=== PATIENT | male | born 1975 | race African-American/Black ===

== ENCOUNTER 2017-09-28 20:26 | Emergency (ER) | payer OTHER ==
[~2017-09-28 20:26] MED LIST: Naloxone 2 MG/2 ML Syringe ONE
[2017-09-28] MEDS ORDERED: Naloxone 2 MG/2 ML Syringe ONE ×2 (20:28→22:19)
[2017-09-28] MEDS ORDERED: Sodium Chloride 0.9% 10 ML Syringe FLUSH PRN (20:39)
[2017-09-28] MEDS ORDERED: Sodium Chloride 0.9% 1,000 ML IV ONE ×2 (20:40→22:52)
--- NOTE | 2017-09-28 20:48 | EDM.PDOC ---
ED HPI GENERAL MEDICAL PROBLEM - General Chief Complaint: Drug or Alcohol Abuse Stated Complaint: [facility] Time Seen by Provider: 09/28/17 20:30 Source of Information: Reports: Patient History Limitations: Reports: Other (Mildly confused and sedated.) - History of Present Illness INITIAL COMMENTS - FREE TEXT/NARRATIVE: Patient is a 42-year-old male who went apneic sitting in a chair by his . states they're were watching TV when she saw the patient bobbing his head. She asked him if he was all right to which he replied yes. Over the next few minutes patient became unresponsive and apneic. 911 was called and the patient was moved to the floor with CPR started. Upon arrival of EMS the patient was apneic with CPR in progress. They administered in total 4 mg of Narcan with patient awaking spontaneously. He had been smoking shyanne this evening. Pot was from a new seller. There is concern the marijuana was laced with fentanyl. Patient denies taking heroin, narcotic pain medications, or any other additional controlled substances. Currently denies any chest pain, sob, nausea/ vomiting, headache, vision changes, abdominal pain, or any additional complaints. - Related Data Allergies Allergy/AdvReac Type Severity Reaction Status Date / Time No Known Allergies Allergy Verified 09/28/17 20:36 Home Meds: Home Meds Cetirizine HCl [Zyrtec] 10 mg PO BEDTIME 09/28/17 [History] Lisinopril 20 mg PO DAILY 09/28/17 [History] Methocarbamol [Robaxin] 500 mg PO BID 09/28/17 [History] buPROPion [Wellbutrin] 100 mg PO DAILY 09/28/17 [History] hydrOXYzine HCl [Atarax] 5 mg PO BID 09/28/17 [History] ED ROS GENERAL - Review of Systems Review Of Systems: ROS reveals no pertinent complaints other than HPI. - Physical Exam Exam: See Below Exam Limited By: Intoxication General Appearance: Alert, No Apparent Distress, Other (Sedated) Eye Exam: Bilateral Eye: EOMI, Other (Pupils are pinpoint unable to determine reactivity.) Ears: Hearing Grossly Normal Nose: Normal Inspection Throat/Mouth: Normal Inspection, Normal Oropharynx, Normal Voice Head Exam: Atraumatic, Normocephalic Neck: Normal Inspection, Supple, Non-Tender, Full Range of Motion Respiratory/Chest: No Respiratory Distress, Lungs Clear, Normal Breath Sounds, No Accessory Muscle Use, Chest Non-Tender Cardiovascular: Normal Peripheral Pulses, Regular Rate, Rhythm, No Murmur GI/Abdominal: Normal Bowel Sounds, Soft, Non-Tender, No Organomegaly Neuro Exam (Abbreviated): Alert, CN II-XII Intact, No Motor/Sensory Deficits, Confused, Other (Patient was all extremities. No facial droop. No slurred speech.) Back Exam: Normal Inspection Extremities: Normal Inspection Psychiatric: Other (Sedated) Skin Exam: Warm, Dry, Intact, Normal Color Course - Vital Signs Last Recorded V/S: Last Vital Signs Temp 97.2 F 09/28/17 20:42 Pulse 100 09/28/17 20:42 Resp 18 09/28/17 20:42 BP 159/103 H 09/28/17 20:42 Pulse Ox 95 09/28/17 20:42 - Orders/Labs/Meds Labs: Laboratory Tests 09/28/17 09/28/17 09/28/17 Range/Units 21:00 21:00 22:29 WBC 5.46 (4.23-9.07) K/mm3 RBC 5.25 (4.63-6.08) M/mm3 Hgb 14.9 (13.7-17.5) gm/L Hct 43.9 (40.1-51.0) % MCV 83.6 (79.0-92.2) fl MCH 28.4 (25.7-32.2) pg MCHC 33.9 (32.2-35.5) g/dl RDW Std Deviation 48.2 H (35.1-43.9) fL Plt Count 248 (163-337) K/mm3 MPV 10.3 (9.4-12.3) fl Neut % (Auto) 48.9 (34.0-67.9) % Lymph % (Auto) 37.5 (21.8-53.1) % [place] % (Auto) 10.1 (5.3-12.2) % Eos % (Auto) 2.7 (0.8-7.0) Baso % (Auto) 0.4 (0.1-1.2) % Neut # (Auto) 2.67 (1.78-5.38) K/mm3 Lymph # (Auto) 2.05 (1.32-3.57) K/mm3 [place] # (Auto) 0.55 (0.30-0.82) K/mm3 Eos # (Auto) 0.15 (0.04-0.54) K/mm3 Baso # (Auto) 0.02 (0.01-0.08) K/mm3 Sodium 143 (136-145) mEq/L Potassium 3.8 (3.5-5.1) mEq/L Chloride 106 (98-107) mEq/L Carbon Dioxide 27 (21-32) mEq/L Anion Gap 13.8 (5-15) BUN 17 (7-18) mg/dL Creatinine 1.2 (0.7-1.3) mg/dL Est Cr Clr Drug Dosing 75.74 mL/min Estimated GFR (MDRD) > 60 (>60) mL/min BUN/Creatinine Ratio 14.2 (14-18) Glucose 109 H (74-106) mg/dL Calcium 9.3 (8.5-10.1) mg/dL Total Bilirubin 0.2 (0.2-1.0) mg/dL AST 43 H (15-37) U/L ALT 53 (16-63) U/L Alkaline Phosphatase 85 (46-116) U/L Troponin I 0.051 (0.00-0.056) ng/mL Total Protein 7.4 (6.4-8.2) g/dl Albumin 3.6 (3.4-5.0) g/dl Globulin 3.8 gm/dL Albumin/Globulin Ratio 1.0 (1-2) TSH 3rd Generation 1.920 (0.358-3.74) uIU/mL Urine Color (Yellow) Urine Appearance (Clear) Urine pH (5.0-8.0) Ur Specific [place] (1.005-1.030) Urine Protein (Negative) Urine Glucose (UA) (Negative) Urine Ketones (Negative) Urine Occult Blood (Negative) Urine Nitrite (Negative) Urine Bilirubin (Negative) Urine Urobilinogen (0.2-1.0) Ur Leukocyte Esterase (Negative) Urine RBC (0-5) /hpf Urine WBC (0-5) /hpf Ur Epithelial Cells (0-5) /hpf Urine Bacteria (FEW) /hpf Urine Mucus (FEW) /hpf Urine Opiates Screen Presumptive positive H (NEGATIVE) Ur Buprenorphine Scrn Negative (NEGATIVE) Ur Oxycodone Screen Negative (NEGATIVE) Urine Methadone Screen Negative (NEGATIVE) Ur Propoxyphene Screen Negative (NEGATIVE) Ur Barbiturates Screen Negative (NEGATIVE) Ur Tricyclics Screen Negative (NEGATIVE) Ur Phencyclidine Scrn Negative (NEGATIVE) Ur Amphetamine Screen Negative (NEGATIVE) U Methamphetamines Scrn Negative (NEGATIVE) U Benzodiazepines Scrn Presumptive positive H (NEGATIVE) U Cocaine Metab Screen Negative (NEGATIVE) U Marijuana (THC) Screen Presumptive positive H (NEGATIVE) Ethyl Alcohol 0.02 (0.00) gm% 09/28/17 Range/Units 22:29 WBC (4.23-9.07) K/mm3 RBC (4.63-6.08) M/mm3 Hgb (13.7-17.5) gm/L Hct (40.1-51.0) % MCV (79.0-92.2) fl MCH (25.7-32.2) pg MCHC (32.2-35.5) g/dl RDW Std Deviation (35.1-43.9) fL Plt Count (163-337) K/mm3 MPV (9.4-12.3) fl Neut % (Auto) (34.0-67.9) % Lymph % (Auto) (21.8-53.1) % [place] % (Auto) (5.3-12.2) % Eos % (Auto) (0.8-7.0) Baso % (Auto) (0.1-1.2) % Neut # (Auto) (1.78-5.38) K/mm3 Lymph # (Auto) (1.32-3.57) K/mm3 [place] # (Auto) (0.30-0.82) K/mm3 Eos # (Auto) (0.04-0.54) K/mm3 Baso # (Auto) (0.01-0.08) K/mm3 Sodium (136-145) mEq/L Potassium (3.5-5.1) mEq/L Chloride (98-107) mEq/L Carbon Dioxide (21-32) mEq/L Anion Gap (5-15) BUN (7-18) mg/dL Creatinine (0.7-1.3) mg/dL Est Cr Clr Drug Dosing mL/min Estimated GFR (MDRD) (>60) mL/min BUN/Creatinine Ratio (14-18) Glucose (74-106) mg/dL Calcium (8.5-10.1) mg/dL Total Bilirubin (0.2-1.0) mg/dL AST (15-37) U/L ALT (16-63) U/L Alkaline Phosphatase (46-116) U/L Troponin I (0.00-0.056) ng/mL Total Protein (6.4-8.2) g/dl Albumin (3.4-5.0) g/dl Globulin gm/dL Albumin/Globulin Ratio (1-2) TSH 3rd Generation (0.358-3.74) uIU/mL Urine Color Yellow (Yellow) Urine Appearance Clear (Clear) Urine pH 6.5 (5.0-8.0) Ur Specific [place] 1.025 (1.005-1.030) Urine Protein 3+ H (Negative) Urine Glucose (UA) Negative (Negative) Urine Ketones Negative (Negative) Urine Occult Blood 1+ H (Negative) Urine Nitrite Negative (Negative) Urine Bilirubin Negative (Negative) Urine Urobilinogen 0.2 (0.2-1.0) Ur Leukocyte Esterase Negative (Negative) Urine RBC 5-10 H (0-5) /hpf Urine WBC Not seen (0-5) /hpf Ur Epithelial Cells 0-5 (0-5) /hpf Urine Bacteria Not seen (FEW) /hpf Urine Mucus Not seen (FEW) /hpf Urine Opiates Screen (NEGATIVE) Ur Buprenorphine Scrn (NEGATIVE) Ur Oxycodone Screen (NEGATIVE) Urine Methadone Screen (NEGATIVE) Ur Propoxyphene Screen (NEGATIVE) Ur Barbiturates Screen (NEGATIVE) Ur Tricyclics Screen (NEGATIVE) Ur Phencyclidine Scrn (NEGATIVE) Ur Amphetamine Screen (NEGATIVE) U Methamphetamines Scrn (NEGATIVE) U Benzodiazepines Scrn (NEGATIVE) U Cocaine Metab Screen (NEGATIVE) U Marijuana (THC) Screen (NEGATIVE) Ethyl Alcohol (0.00) gm% Meds: Medications Discontinued Medications Generic Name Dose Route Start Last Admin Trade Name Freq PRN Reason Stop Dose Admin Sodium Chloride 1,000 mls @ 999 mls/hr 09/28/17 20:40 09/28/17 20:52 Normal Saline IV 09/28/17 21:40 999 mls/hr ONETIME ONE Administration Sodium Chloride Confirm 09/28/17 22:42 09/28/17 23:24 Normal Saline Administered 09/28/17 22:43 Not Given Dose 1,000 mls @ as directed .ROUTE .STK-MED ONE Sodium Chloride 1,000 mls @ 999 mls/hr 09/28/17 22:52 09/28/17 23:27 Normal Saline IV 09/28/17 23:52 999 mls/hr ONETIME ONE Administration Naloxone HCl Confirm 09/28/17 20:28 09/28/17 20:54 Narcan Administered 09/28/17 20:29 Not Given Dose 2 mg .ROUTE .STK-MED ONE Naloxone HCl 0.5 mg 09/28/17 20:52 09/28/17 20:32 Narcan IVPUSH 09/28/17 20:53 0.5 mg ONETIME ONE Administration Naloxone HCl 1 mg 09/28/17 20:53 09/28/17 20:35 Narcan IVPUSH 09/28/17 20:54 1 mg ONETIME ONE Administration Naloxone HCl 2 mg 09/28/17 22:15 09/28/17 23:27 Narcan IVPUSH 09/28/17 22:16 2 mg ONETIME ONE Administration Naloxone HCl Confirm 09/28/17 22:19 09/28/17 23:24 Narcan Administered 09/28/17 22:20 Not Given Dose 2 mg .ROUTE .STK-MED ONE Naloxone HCl Confirm 09/28/17 20:20 Narcan Administered 09/28/17 20:21 Dose 2 mg .ROUTE .STK-MED ONE Ondansetron HCl 4 mg 09/28/17 21:30 09/28/17 21:30 Zofran IVPUSH 09/28/17 21:31 4 mg ONETIME ONE Administration Ondansetron HCl Confirm 09/28/17 21:32 09/28/17 23:27 Zofran Administered 09/28/17 21:33 Not Given Dose 4 mg .ROUTE .STK-MED ONE Sodium Chloride 10 ml 09/28/17 20:39 09/28/17 20:52 Saline Flush FLUSH 10 ml ASDIRECTED PRN Administration Keep Vein Open - Re-Assessments/Exams Free Text/Narrative Re-Assessment/Exam: IV established by ambulance. With examination in the ED patient is mildly confused with pinpoint pupils. O2 sats were 91% on room air. Patient has increased drowsiness. Ordered 0.5 milligrams of Narcan with no improvement. Ordered an additional 1 milligram IVP with slight improvement to the patient's mentation. Will continue to monitor. Advised nursing staff to administer 1 mg every 5 minutes as needed. Labs to be obtained include: CBC, chem 14, urine drug tox, serum EtOH, troponin, TSH, UA, and also chest x-ray one the. In addition EKG will be obtained. With review of patient's medications he is on Robaxin a muscle relaxant which you suspect dilatation of the pupils. In addition he's also been utilizing marijuana with alcohol use this evening which may be increasing his drowsiness. I do suspect the patient has been using some form of narcotic medication that he is not admitting to. Patient refused taking robaxin and atarax. 2134 Reassessment, patient's vital signs are stable. He is attempting to provide a urine sample. Still feeling moderately drowsy. Labs reviewed: CBC, chem 14, essentially normal. Troponin 0.051, TSH and normal limits, serum EtOH 0.02. Additional 1L of NS ordered. 09/28/17 22:10 Reassessment, patient's vitals are stable. He is attempting to utilize the urinal. Unable to provide a urine sample. He is falling asleep during this. Pupils are still pinpoint. Will order additional 2 mg of Narcan. Due to prolonged duration of symptoms it appears symptoms are most likely not related to fentanyl overdose. Patient denies using any narcotics. Patient was administered 2 mg of Narcan with really no change in patient's mentation. Again the vital signs are stable. When awakened he is alert. Continues to deny taking narcotics. He states the Shyanne is highly concentrated THC. Urine sample has been provided. Awaiting results of urine drug tox. 09/28/17 23:05 Urine drug tox positive for opiates, benzodiapenes, and marijuana. Reassessment, patient currently sleeping. Vital signs are stable. Spo2 94 % on Room air. Once he awakes will discharge home with instructions as documented. 09/28/17 23:15 is present to take patient home. Patient awoken refusing opiate use. Walked around the E.D. on his own accord. Discharge instructions as documented. Departure - Departure Time of Disposition: 23:16 Disposition: Home, Self-Care 01 Condition: Good Clinical Impression: Alcohol use Accidental drug overdose Qualifiers: Encounter type: initial encounter Qualified Code(s): T50.901A - Poisoning by unspecified drugs, medicaments and biological substances, accidental ( unintentional), initial encounter Marijuana intoxication Qualifiers: Complication of substance-induced condition: with unspecified complication Qualified Code(s): F12.929 - Cannabis use, unspecified with intoxication, unspecified - Discharge Information Instructions: Accidental Overdose Referrals: PCP,None [Primary Care Provider] - Forms: ED Return to Work/School Form Additional Instructions: As discussed urine drug toxicology positive for opiates, benzodiapenes, marijuana, and alcohol. Per you stopped breathing and CPR was started. Ambulance arrived on scene and you were not breathing. Narcan 4mg IVP was administered with return of spontaneous breathing. If your was not present you would have . Unsure where the opiates came from since no medications of this classification are on your medication list. Do not take robaxin, THC, alcohol, and opiates together. The synergistic effects will kill you. Go home this evening and sleep. Followup with PCP tomorrow. Return to the E.D. for any new or worsening symptoms. No work tomorrow. No driving for the next 12 hours.
[2017-09-28] MEDS ORDERED: Ondansetron 4 MG/2 ML SDV IVPUSH ONE (21:30)
[2017-09-28] MEDS ORDERED: Ondansetron 4 MG/2 ML SDV ONE (21:32)
[2017-09-28] MEDS ORDERED: Sodium Chloride 0.9% 1,000 ML ONE (22:42)
--- NOTE | 2017-09-29 07:46 | CR ---
Chest: Portable view of the chest was obtained. Comparison: No prior study. Heart size and mediastinum are within normal limits for portable technique. Lungs are clear. Bony structures are grossly intact. Impression: 1. Nothing acute is identified on portable chest x-ray. Diagnostic code #1
== END 2017-09-28 23:36 | disposition home or self-care (01) ==
LOC: EDBD 20:26 → JD.ED 20:26
DX: F10.129 Alcohol abuse with intoxication, unspecified (principal); F12.90 Cannabis use, unspecified, uncomplicated; Y90.0 Blood alcohol level of less than 20 mg/100 ml; T65.91XA Toxic effect of unspecified substance, accidental (unintentional), initial encounter; Z79.899 Other long term (current) drug therapy
CPT/HCPCS: 36415; 71010; 80053; 80306; 81001; 84443; 84484; 85025; 92950; 93005; 96361; 96374; 96375; 96376; 99285; G0480; J2310; J2405; J7040; J7050; 93010

== ENCOUNTER 2019-01-10 04:37 | Emergency (ER) | payer OTHER ==
[2019-01-10] MEDS ORDERED: HYDROmorphone 1 MG/ML Syringe IVPUSH ONE ×3 (04:54→07:12)
[2019-01-10] MEDS ORDERED: Metoclopramide 10 MG/2 ML SDV IVPUSH ONE (04:54)
--- NOTE | 2019-01-10 04:59 | EDM.PDOC ---
<Cole Gonzalez - Last Filed: 01/10/19 09:18> ED HPI GENERAL MEDICAL PROBLEM - General Chief Complaint: Flank Pain Stated Complaint: EXTREME LEFT SIDE PAIN UNABLE TO SLEEP Time Seen by Provider: 01/10/19 04:53 - Related Data Allergies Allergy/AdvReac Type Severity Reaction Status Date / Time No Known Allergies Allergy Verified 09/28/17 20:36 Home Meds: Home Meds hydrOXYzine HCl [Atarax] 5 mg PO BID 09/28/17 [History] Escitalopram [Lexapro] 01/10/19 [History] Lisinopril/Hydrochlorothiazide [Lisinopril-HCTZ 10-12.5 MG] 01/10/19 [History] amLODIPine Besylate [Amlodipine Besylate] 20 mg PO DAILY 01/10/19 [History] clonazePAM [Klonopin] 1 mg PO DAILY #10 tablet 01/10/19 [Rx] levoFLOXacin [Levaquin] 500 mg PO DAILY #9 tab 01/10/19 [Rx] metroNIDAZOLE [Flagyl] 500 mg PO Q8H #24 tab 01/10/19 [Rx] oxyCODONE HCl/Acetaminophen [Percocet 5-325 mg Tablet] 1 - 2 each PO Q4H PRN # 20 tablet 01/10/19 [Rx] Course - Vital Signs Last Recorded V/S: Last Vital Signs Temp 37.5 C 01/10/19 07:27 Pulse 103 H 01/10/19 07:18 Resp 22 H 01/10/19 07:18 BP 170/110 H 01/10/19 04:48 Pulse Ox 93 L 01/10/19 07:18 - Orders/Labs/Meds Labs: Laboratory Tests 01/10/19 01/10/19 01/10/19 Range/Units 05:14 05:14 09:10 WBC 11.17 H (4.23-9.07) K/mm3 RBC 5.24 (4.63-6.08) M/mm3 Hgb 14.8 (13.7-17.5) gm/L Hct 42.6 (40.1-51.0) % MCV 81.3 (79.0-92.2) fl MCH 28.2 (25.7-32.2) pg MCHC 34.7 (32.2-35.5) g/dl RDW Std Deviation 41.6 (35.1-43.9) fL Plt Count 254 (163-337) K/mm3 MPV 10.6 (9.4-12.3) fl Neutrophils % (Manual) 84 H (40-60) % Band Neutrophils % 0 (0-10) % Lymphocytes % (Manual) 13 L (20-40) % Atypical Lymphs % 0 % Monocytes % (Manual) 3 (2-10) % Eosinophils % (Manual) 0 L (0.8-7.0) % Basophils % (Manual) 0 L (0.2-1.2) Platelet Estimate Adequate Target Cells 1+ slight RBC Morph Comment Not Reportable Sodium 140 (136-145) mEq/L Potassium 3.5 (3.5-5.1) mEq/L Chloride 104 (98-107) mEq/L Carbon Dioxide 28 (21-32) mEq/L Anion Gap 11.5 (5-15) BUN 19 H (7-18) mg/dL Creatinine 1.4 H (0.7-1.3) mg/dL Est Cr Clr Drug Dosing 62.03 mL/min Estimated GFR (MDRD) > 60 (>60) mL/min BUN/Creatinine Ratio 13.6 L (14-18) Glucose 109 H (74-106) mg/dL Calcium 9.3 (8.5-10.1) mg/dL Total Bilirubin 0.5 (0.2-1.0) mg/dL AST 19 (15-37) U/L ALT 29 (16-63) U/L Alkaline Phosphatase 111 (46-116) U/L C-Reactive Protein 17.3 H* (<1.0) mg/dL Total Protein 8.3 H (6.4-8.2) g/dl Albumin 3.8 (3.4-5.0) g/dl Globulin 4.5 gm/dL Albumin/Globulin Ratio 0.8 L (1-2) Lipase 192 (73-393) U/L Urine Color Yellow (Yellow) Urine Appearance Clear (Clear) Urine pH 6.0 (5.0-8.0) Ur Specific Shidler 1.025 (1.005-1.030) Urine Protein Trace H (Negative) Urine Glucose (UA) Negative (Negative) Urine Ketones Negative (Negative) Urine Occult Blood Negative (Negative) Urine Nitrite Negative (Negative) Urine Bilirubin Negative (Negative) Urine Urobilinogen 0.2 (0.2-1.0) Ur Leukocyte Esterase Negative (Negative) Urine RBC 0-5 (0-5) /hpf Urine WBC 0-5 (0-5) /hpf Ur Epithelial Cells 0-5 (0-5) /hpf Urine Bacteria Few (FEW) /hpf Urine Mucus Few (FEW) /hpf Meds: Medications Discontinued Medications Generic Name Dose Route Start Last Admin Trade Name Gurpreet PRN Reason Stop Dose Admin Acetaminophen 975 mg 01/10/19 07:12 01/10/19 07:27 Tylenol PO 01/10/19 07:13 975 mg NOW ONE Administration Hydromorphone HCl 1 mg 01/10/19 04:54 01/10/19 05:17 Dilaudid IVPUSH 01/10/19 04:55 1 mg ONETIME ONE Administration Hydromorphone HCl 1 mg 01/10/19 05:48 01/10/19 06:14 Dilaudid IVPUSH 01/10/19 05:49 1 mg ONETIME ONE Administration Hydromorphone HCl 1 mg 01/10/19 07:12 01/10/19 07:28 Dilaudid IVPUSH 01/10/19 07:13 1 mg ONETIME ONE Administration Dextrose/Sodium Chloride 1,000 mls @ 200 mls/hr 01/10/19 05:00 01/10/19 05:13 Dextrose 5%-Normal Saline IV 200 mls/hr ASDIRECTED YESENIA Administration Levofloxacin/Dextrose 750 mg/ 150 mls @ 100 mls/hr 01/10/19 06:10 01/10/19 06 :25 Premix IV 01/10/19 07:39 100 mls/hr ONETIME ONE Administration Metronidazole 500 mg/ Premix 100 mls @ 100 mls/hr 01/10/19 06:11 01/10/19 06: 22 IV 01/10/19 07:10 100 mls/hr ONETIME ONE Administration Ketorolac Tromethamine 30 mg 01/10/19 07:15 Toradol IVPUSH ONETIME YESENIA Metoclopramide HCl 10 mg 01/10/19 04:54 01/10/19 05:13 Reglan IVPUSH 01/10/19 04:55 10 mg ONETIME ONE Administration - Re-Assessments/Exams Free Text/Narrative Re-Assessment/Exam: 01/10/19 09:18 Notified that the patient's antibiotics are nearly infused, and that the patient is anxious to go home. I will discharge him. Departure - Departure Time of Disposition: 09:18 Disposition: Home, Self-Care 01 Clinical Impression: Diverticulitis large intestine Qualifiers: Diverticulitis bleeding: without bleeding Diverticulitis complication: without perforation or abscess Qualified Code(s): K57.32 - Diverticulitis of large intestine without perforation or abscess without bleeding - Discharge Information Prescriptions: clonazePAM [Klonopin] 1 mg PO DAILY #10 tablet levoFLOXacin [Levaquin] 500 mg PO DAILY #9 tab metroNIDAZOLE [Flagyl] 500 mg PO Q8H #24 tab oxyCODONE HCl/Acetaminophen [Percocet 5-325 mg Tablet] 1 - 2 each PO Q4H PRN # 20 tablet PRN Reason: pain relief. Instructions: Diverticulitis, [id number] Referrals: PCP,None [Primary Care Provider] - Forms: ED Department Discharge, ED Return to Work/School Form Additional Instructions: Evaluation in the emergency room this morning in regards to development of left- sided abdominal pain and flank pain over the last 2 days. Associated fever chills until you came into the ED. Lab work reveals a mildly elevated white blood cell count and markers suggestive of bacterial infection. CT scan of the abdomen done without contrast reveals evidence of diverticulitis of the descending colon on the left side of your abdomen. Treatment was started in the ED with IV antibiotic Levaquin 750 mg and metronidazole or Flagyl 500 mg IV. Pain medication as been Dilaudid 1 mg IV on 3 occasions for pain relief and Toradol 30 mg IV for pain and inflammation. Did develop a fever while in the ED. You're treated with Tylenol 975 mg by mouth. He will need to take antibiotic Flagyl 500 mg by mouth every 8 hours for the next 8 days. The next tablet would be due around 1500 hrs. today. Levaquin tablet 500 mg once daily to be taken every morning starting tomorrow morning. This will be taken for 9 more days. Expect gradual improvement in the pain over the next 48 hours. May take Percocet 5/325 mg tablet 2 every 4-6 hours needed for pain relief until the antibiotics become effectual. Hydroxyzine the use at bedtime to help sleep should be placed on hold while you're on antibiotic medication as they do not mix well. I did write a prescription for clonazepam 1 mg to be taken at bedtime in place of the hydroxyzine to help you sleep. May resume the hydroxyzine tablet after the antibiotics have been completed. If you feel your not markedly improved in 48-72 hours or worsen in the interval and please return to the ED for admission to the hospital. <Eulogio El - Last Filed: 01/13/19 07:05> ED HPI GENERAL MEDICAL PROBLEM - General Source of Information: Reports: Patient History Limitations: Reports: No Limitations - History of Present Illness INITIAL COMMENTS - FREE TEXT/NARRATIVE: 43-year-old male of -[place] ancestry presents to the ED with acute onset of severe left ernestina-abdominal pain. He states the pain came on suddenly about 2 days ago and has been persistent ever since. Described as a constant pain with a colicky component. It does seem to start in his left flank and radiate along the left hemiabdomen down towards the groin. He hasn't appreciated any fever or chills. Bowels have not moved for at least 1 day. No history of constipation. Certainly no diarrhea. He is nauseated because of the pain but has not vomited. Sleep at all tonight due to the severity of the pain. No position is carpal. No history of kidney stones. No history of previous abdominal surgery. Has not no cine change in the color of his urine or blood in the urine. Onset: Sudden Onset Date: 01/08/19 Duration: Day(s):, Colic, Constant, Getting Worse Location: Reports: Abdomen (Left hemiabdomen starting in the left flank radiating all he down to the left groin.) Quality: Reports: Ache ( Not down to the testicle.), Sharp, Stabbing, Other Severity: Severe (Some colicky component to the pain) Improves with: Reports: None ( tended to 10) Worsens with: Reports: None, Other (No position is comfortable.) Context: Denies: Activity, Exercise, Lifting, Sick Contact, Trauma, Other Associated Symptoms: Reports: Nausea/Vomiting (Nausea with no vomiting he states he did eat normally yesterday.). 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 Denies: Fever, Chills HEENT: Reports: No Symptoms Respiratory: Reports: No Symptoms Cardiovascular: Reports: No Symptoms Endocrine: Reports: No Symptoms GI/Abdominal: Reports: Abdominal Pain (Left ernestina-abdominal pain starting in the left upper quadrant rating down towards the suprapubic area of the abdomen.), Constipation, Decreased Appetite, Distension, Nausea. Denies: Hematemesis, Hematochezia, Stool Incontinence, Vomiting (Associate with the intensity of the pain.) : Reports: No Symptoms Musculoskeletal: Reports: Back Pain Skin: Reports: No Symptoms (Him left flank pain.) Neurological: Reports: No Symptoms Psychiatric: Reports: No Symptoms Hematologic/Lymphatic: Reports: No Symptoms Immunologic: Reports: No Symptoms ED EXAM, GI/ABD - Physical Exam Exam: See Below Exam Limited By: No Limitations General Appearance: Alert, WD/WN, Moderate Distress (No position, cough and the patient appears to be writhing on the bed.), Other (Vital signs reveal a normal temperature. He is moderately hypertensive at 170/110.) Eyes: Bilateral: Normal Appearance (No scleral icterus) Neck: Normal Inspection, Supple, Non-Tender, Full Range of Motion. No: Lymphadenopathy (L), Lymphadenopathy (R) Respiratory/Chest: No Respiratory Distress, Lungs Clear, Normal Breath Sounds, No Accessory Muscle Use Cardiovascular: Normal Peripheral Pulses, Regular Rate, Rhythm, No Edema, No Gallop, No Murmur, No Rub GI/Abdominal Exam: Soft (Mildly hyperactive bowel sounds in all 4 quadrants), Guarding, Tender (He is very tender with palpable left hemicolon lateral abdomen up to the splenic flexure.), Abnormal Bowel Sounds. No: Rigid, Rebound (Male) Exam: No Hernia Back Exam: Normal Inspection, Full Range of Motion, CVA Tenderness (L). No: CVA Tenderness (R) (Mild) Extremities: Normal Inspection, Normal Range of Motion, Non-Tender, No Pedal Edema Neurological: Alert, Oriented, CN II-XII Intact, Normal Cognition Psychiatric: Other (In quite significant pain) Skin Exam: Warm, Dry, Intact, Normal Color, No Rash Course - Orders/Labs/Meds Labs: Laboratory Tests 01/10/19 01/10/19 01/10/19 Range/Units 05:14 05:14 09:10 WBC 11.17 H (4.23-9.07) K/mm3 RBC 5.24 (4.63-6.08) M/mm3 Hgb 14.8 (13.7-17.5) gm/L Hct 42.6 (40.1-51.0) % MCV 81.3 (79.0-92.2) fl MCH 28.2 (25.7-32.2) pg MCHC 34.7 (32.2-35.5) g/dl RDW Std Deviation 41.6 (35.1-43.9) fL Plt Count 254 (163-337) K/mm3 MPV 10.6 (9.4-12.3) fl Neutrophils % (Manual) 84 H (40-60) % Band Neutrophils % 0 (0-10) % Lymphocytes % (Manual) 13 L (20-40) % Atypical Lymphs % 0 % Monocytes % (Manual) 3 (2-10) % Eosinophils % (Manual) 0 L (0.8-7.0) % Basophils % (Manual) 0 L (0.2-1.2) Platelet Estimate Adequate Target Cells 1+ slight RBC Morph Comment Not Reportable Sodium 140 (136-145) mEq/L Potassium 3.5 (3.5-5.1) mEq/L Chloride 104 (98-107) mEq/L Carbon Dioxide 28 (21-32) mEq/L Anion Gap 11.5 (5-15) BUN 19 H (7-18) mg/dL Creatinine 1.4 H (0.7-1.3) mg/dL Est Cr Clr Drug Dosing 62.03 mL/min Estimated GFR (MDRD) > 60 (>60) mL/min BUN/Creatinine Ratio 13.6 L (14-18) Glucose 109 H (74-106) mg/dL Calcium 9.3 (8.5-10.1) mg/dL Total Bilirubin 0.5 (0.2-1.0) mg/dL AST 19 (15-37) U/L ALT 29 (16-63) U/L Alkaline Phosphatase 111 (46-116) U/L C-Reactive Protein 17.3 H* (<1.0) mg/dL Total Protein 8.3 H (6.4-8.2) g/dl Albumin 3.8 (3.4-5.0) g/dl Globulin 4.5 gm/dL Albumin/Globulin Ratio 0.8 L (1-2) Lipase 192 (73-393) U/L Urine Color Yellow (Yellow) Urine Appearance Clear (Clear) Urine pH 6.0 (5.0-8.0) Ur Specific Shidler 1.025 (1.005-1.030) Urine Protein Trace H (Negative) Urine Glucose (UA) Negative (Negative) Urine Ketones Negative (Negative) Urine Occult Blood Negative (Negative) Urine Nitrite Negative (Negative) Urine Bilirubin Negative (Negative) Urine Urobilinogen 0.2 (0.2-1.0) Ur Leukocyte Esterase Negative (Negative) Urine RBC 0-5 (0-5) /hpf Urine WBC 0-5 (0-5) /hpf Ur Epithelial Cells 0-5 (0-5) /hpf Urine Bacteria Few (FEW) /hpf Urine Mucus Few (FEW) /hpf Meds: Medications Discontinued Medications Generic Name Dose Route Start Last Admin Trade Name Freq PRN Reason Stop Dose Admin Acetaminophen 975 mg 01/10/19 07:12 01/10/19 07:27 Tylenol PO 01/10/19 07:13 975 mg NOW ONE Administration Hydromorphone HCl 1 mg 01/10/19 04:54 01/10/19 05:17 Dilaudid IVPUSH 01/10/19 04:55 1 mg ONETIME ONE Administration Hydromorphone HCl 1 mg 01/10/19 05:48 01/10/19 06:14 Dilaudid IVPUSH 01/10/19 05:49 1 mg ONETIME ONE Administration Hydromorphone HCl 1 mg 01/10/19 07:12 01/10/19 07:28 Dilaudid IVPUSH 01/10/19 07:13 1 mg ONETIME ONE Administration Dextrose/Sodium Chloride 1,000 mls @ 200 mls/hr 01/10/19 05:00 01/10/19 05:13 Dextrose 5%-Normal Saline IV 200 mls/hr ASDIRECTED YESENIA Administration Levofloxacin/Dextrose 750 mg/ 150 mls @ 100 mls/hr 01/10/19 06:10 01/10/19 06 :25 Premix IV 01/10/19 07:39 100 mls/hr ONETIME ONE Administration Metronidazole 500 mg/ Premix 100 mls @ 100 mls/hr 01/10/19 06:11 01/10/19 06: 22 IV 01/10/19 07:10 100 mls/hr ONETIME ONE Administration Ketorolac Tromethamine 30 mg 01/10/19 07:15 Toradol IVPUSH ONETIME YESENIA Metoclopramide HCl 10 mg 01/10/19 04:54 01/10/19 05:13 Reglan IVPUSH 01/10/19 04:55 10 mg ONETIME ONE Administration - Radiology Interpretation Free Text/Narrative:: 43-year-old male presents to the ED with diffuse left ernestina-abdominal pain. He states it started suddenly 2 days ago. Seems to start in his left flank and radiated down the left hemiabdomen towards the groin. He is very uncomfortable. He describes the pain as being constant with a colicky component. He did eat normally yesterday. No vomiting. He is nauseated at this time due to the intensity of the pain. Noted no change in the urine no blood in the urine. No history of kidney stones. No history of abdominal surgery. Exam reveals bowel sounds quite hyperactive in all 4 quadrants. He is very tender to touch along the distribution of the left lateral abdominal wall and I believe I can palpate his descending colon. Clinically he appears to be constipated. He is very tender suggesting possibility of diverticulitis. Plan IV D5 normal saline at 200 mils per hour. Given Dilaudid 1 mg IV and Reglan 10 mg IV for relief of abdominal pain. Routine labs to be collected including a CRP and a lipase. One view the abdomen will be obtained. None these findings will determine whether or not we need a CT of the abdomen performed - Re-Assessments/Exams Free Text/Narrative Re-Assessment/Exam: 01/10/19 05:44 KUB reveals a increased air throughout the left hemicolon. Very little stool within the bowel. No dilatation of the small bowel no signs of obstruction. No obvious kidney stone identified. We'll proceed with CT of the abdomen per renal protocol. 01/10/19 05:48 He reports pain is somewhat better but still rates his pain is 5 out of 10. Will therefore repeat Dilaudid 1 mg IV. 01/10/19 06:00 Labs reveal a mildly elevated white count at 11.17. Left shift of 84% neutrophils without any bands. Hemoglobin is 14.8 with hematocrit of 42.6. Platelet count is 254,000. Sodium 140 with potassium of 3.5. Chloride 104 the bicarbonate 28. And a gap is 11.5. BUN is 19 with a creatinine of 1.4. GFR remains greater than 60. Glucose is 109. Calcium is 9.3. Liver function is normal. C-reactive protein is markedly elevated at 17.3. Total protein is 8.3 with an albumin fraction of 3.8. Lipase 192. Plan CT of the abdomen is currently in progress without contrast as I was looking for a kidney stone. Concern for diverticulitis is evident based on lab results with elevated CRP and slightly elevated white blood cell count with left shift 01/10/19 06:14 CT the abdomen and pelvis has been completed without any contrast. He does not reveal any kidney stones. The left ureter is minimally dilated without any stone. There are several phleboliths in the pelvis. The liver appears homogeneous and gallbladder appears normal without any calcified gallstones. Pancreas and spleen are normal. There are segments of the transverse colon and splenic flexure of the colon that are slightly dilated with air. Mid descending colon does show evidence of multiple diverticuli with a segment of diverticulitis with inflammation around the colon in this area. Therefore he will be started on antibiotic Levaquin 750 mg IV and Flagyl 500 mg IV. 01/10/19 07:13 radiologist disagrees with my findings of a thickening of the wall of the descending colon with inflammatory stranding in the adjacent mesenteric fat. Associated with diverticula. No intraperitoneal free gas or abscess is evident. Remaining and intestine is unremarkable and appendix is identified and normal in caliber. I discussed the findings with the patient. He has elected to try things at home versus coming and staying in the hospital. It' ll be about 2 hours before his completed his IV antibiotic therapy with Levaquin 750 mg IV and Flagyl 500 IV. Present he is quite warm to palpation and has spiked a temperature. I will have the nurses check this. He will be given Tylenol 975 mg orally for fever relief. For further pain relief I will repeat Dilaudid 1 mg IV and provide Toradol 30 mg IV. At this time I will write his discharge summary and medications for home. In case he changes his mind and wishes to stay in the hospital Dr. Kendrick has been made aware Departure - Departure Condition: Fair - Discharge Information *PRESCRIPTION DRUG MONITORING PROGRAM REVIEWED*: Not Applicable *COPY OF PRESCRIPTION DRUG MONITORING REPORT IN PATIENT SAL: Not Applicable
[2019-01-10] MEDS ORDERED: Dextrose 5%-0.9% NaCl 1,000 ML IV SCH (05:00)
[2019-01-10] MEDS ORDERED: Levofloxacin/Dextrose 5%-Water 750 MG in Premix Bag 1 BAG IV ONE (06:10)
[2019-01-10] MEDS ORDERED: metroNIDAZOLE/Normal Saline 500 MG in Premix Bag 1 BAG IV ONE (06:11)
[2019-01-10] MEDS ORDERED: Acetaminophen 325 MG Tab PO ONE (07:12)
[2019-01-10] MEDS ORDERED: Ketorolac 30 MG/ML SDV IVPUSH SCH (07:15)
--- NOTE | 2019-01-10 07:57 | CT ---
CT abdomen and pelvis Technique: Multiple axial sections were obtained from above the dome of the diaphragm inferiorly through the pubic symphysis. Intravenous contrast and oral contrast not utilized. Comparison: Prior abdominal x-ray performed earlier on the same day (5:33 AM). Findings: Kidneys show no abnormal calcifications. No ureteral dilatation or ureteral stone is seen. No bladder calculi are noted. Inflammatory change is noted around a portion of the descending colon. Diverticuli are seen in this region and findings are felt compatible with diverticulitis. No abscess is seen at this time. Visualized lung bases show nothing acute. Liver and spleen show no discrete abnormality. Small hiatal hernia is noted. Pancreas is within normal limits. Gallbladder contains no calcified gallstones. Aorta shows no aneurysm. No retroperitoneal adenopathy is seen. Appendix is seen and is normal. Small fat-containing left inguinal hernia is seen. No free fluid is seen. Bone window settings were reviewed which show mild degenerative change within the spine. Impression: 1. Inflammatory change surrounding diverticuli within the descending colon compatible with diverticulitis. No adjacent abscess is seen. 2. Other incidental findings as noted above. Diagnostic code #3 I agree with preliminary report from [facility], finalized on 01/10/19, 7:54 AM Central Time
--- NOTE | 2019-01-10 08:06 | CR ---
Abdomen: Supine view of the abdomen was obtained. Comparison: No prior abdominal x-ray. Bowel gas pattern is normal. Calcifications are seen within the pelvis which are compatible with phleboliths. Slight degenerative endplate spurring is noted within the spine. No soft tissue abnormality is appreciated. Impression: 1. Nothing acute is seen on supine abdominal x-ray. Diagnostic code #2
== END 2019-01-10 09:24 | disposition home or self-care (01) ==
LOC: JD.ED 04:37
DX: K57.32 Diverticulitis of large intestine without perforation or abscess without bleeding (principal); I10 Essential (primary) hypertension; F32.9 Major depressive disorder, single episode, unspecified; F17.210 Nicotine dependence, cigarettes, uncomplicated; Z79.899 Other long term (current) drug therapy
CPT/HCPCS: 36415; 74018; 74176; 80053; 81001; 83690; 85007; 85027; 86140; 96361; 96365; 96366; 96368; 96375; 96376; 99284; A9270; J1170; J1956; J2765; J3490; J7042; 99285

== ENCOUNTER 2019-01-14 16:17 | Emergency (ER) | payer OTHER ==
--- NOTE | 2019-01-14 16:38 | EDM.PDOC ---
ED HPI GENERAL MEDICAL PROBLEM - General Chief Complaint: Abdominal Pain Stated Complaint: DIVERTICULITIS NOT BETTER NOW CONSTIPATED Time Seen by Provider: 01/14/19 16:34 Source of Information: Reports: Patient History Limitations: Reports: No Limitations - History of Present Illness INITIAL COMMENTS - FREE TEXT/NARRATIVE: 43-year-old male presents once again to the ED with complaint of worsening left ernestina-abdominal pain. Patient was seen on the and diagnosed with diverticulitis by way of CT of the abdomen without contrast. His initial presentation was that of left flank pain rating down towards his left groin suggestive of a kidney stone. He did however have significant left-sided abdominal pain on palpation. Therefore the initial CT was done without any oral or IV contrast. However it did demonstrate significant diverticulitis without diverticular abscess of the mid descending colon. He was treated with intravenous fluids Dilaudid for pain relief and Reglan for nausea. He was also given initial dose of Levaquin 750 mg IV in the additional dose of Flagyl 500 mg IV. He states that since going home he has continued to have significant pain because the Percocet tablets causing to nausea have nausea and vomiting. Is been living on green tea. Not had any solids for several days. Said no bowel movement for 4 days. Complains of abdominal bloating and increased abdominal pain left upper quadrant. Perhaps some chills but no defined fever. Chief complaint appears to be pain. Onset: Gradual Onset Date: 01/08/19 Duration: Day(s):, Getting Worse Location: Reports: Abdomen (Left hemiabdomen.) Quality: Reports: Ache, Other Severity: Moderate (Patient will colicky component to the pain) Improves with: Reports: None Worsens with: Reports: None Context: Denies: Activity, Exercise, Lifting, Sick Contact, Trauma, Other Associated Symptoms: Reports: Fever/Chills, Loss of Appetite (Wrap some mild chills but no defined fever), Malaise, Nausea/Vomiting (Nausea vomiting after taking Percocet tablets.), Weakness, Other (She essentially been bedridden for the last 4 days). 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 (see below) (Hasn't been taking anything for pain relief.) Abdominal Pain Score (Numeric/FACES): 9 - Related Data Allergies Allergy/AdvReac Type Severity Reaction Status Date / Time acetaminophen [From Percocet] Allergy Vomiting Verified 01/14/19 16:25 oxycodone [From Percocet] Allergy Vomiting Verified 01/14/19 16:25 Home Meds: Home Meds hydrOXYzine HCl [Atarax] 5 mg PO BID 09/28/17 [History] Escitalopram [Lexapro] 01/10/19 [History] Lisinopril/Hydrochlorothiazide [Lisinopril-HCTZ 10-12.5 MG] 01/10/19 [History] amLODIPine Besylate [Amlodipine Besylate] 20 mg PO DAILY 01/10/19 [History] clonazePAM [Klonopin] 1 mg PO DAILY #10 tablet 01/10/19 [Rx] levoFLOXacin [Levaquin] 500 mg PO DAILY #9 tab 01/10/19 [Rx] metroNIDAZOLE [Flagyl] 500 mg PO Q8H #24 tab 01/10/19 [Rx] oxyCODONE HCl/Acetaminophen [Percocet 5-325 mg Tablet] 1 - 2 each PO Q4H PRN # 20 tablet 01/10/19 [Rx] Morphine 15 mg PO Q4H PRN #20 tab 01/14/19 [Rx] Past Medical History - Past Health History Medical/Surgical History: Denies Medical/Surgical History Cardiovascular History: Reports: Hypertension Psychiatric History: Reports: Depression, PTSD - Past Surgical History GI Surgical History: Reports: Hernia Repair/Other Social & Family History - Caffeine Use Caffeine Use: Reports: Coffee, Energy Drinks, Soda, Tea - Living Situation & Occupation Living situation: Reports: Single Occupation: Employed [employer] [facility] [employer] [employer] [facility] - Review of Systems Review Of Systems: See Below Constitutional: Reports: Chills, Malaise, Weakness, Fatigue, Decreased Appetite , Weight Loss HEENT: Reports: No Symptoms Respiratory: Reports: No Symptoms Cardiovascular: Reports: No Symptoms Endocrine: Reports: No Symptoms GI/Abdominal: Reports: Abdominal Pain (Severe diffuse left ernestina-abdominal pain with feeling of being bloated.), Constipation (As not had a bowel movement for 4 days.), Decreased Appetite, Distension, Nausea (After taking Percocet tablets. ), Vomiting (After taking Percocet tablets.). Denies: Difficulty Swallowing, Flatus, Hematemesis, Hematochezia, Melena, Stool Incontinence, Other : Reports: No Symptoms Musculoskeletal: Reports: Back Pain (Left flank pain.) Skin: Reports: No Symptoms Neurological: Reports: No Symptoms Psychiatric: Reports: No Symptoms Hematologic/Lymphatic: Reports: No Symptoms ED EXAM, GI/ABD - Physical Exam Exam: See Below Exam Limited By: No Limitations General Appearance: Alert, WD/WN, Moderate Distress (Clinically appears to be in significant discomfort.) Eyes: Bilateral: Normal Appearance (No scleral icterus) Throat/Mouth: Other (Oropharynx is dry) Head: Atraumatic, Normocephalic Neck: Normal Inspection, Supple, Non-Tender, Full Range of Motion. No: Lymphadenopathy (L), Lymphadenopathy (R) Respiratory/Chest: No Respiratory Distress, Lungs Clear, Normal Breath Sounds, No Accessory Muscle Use GI/Abdominal Exam: No Organomegaly, No Mass, Distended (Bowel sounds are fairly quiet sent. Or distended then he was 4 days ago.), Guarding (Left hemiabdomen particularly mid abdomen.), Rebound, Tender (Left hemiabdomen), Abnormal Bowel Sounds, Other (Pain to percussion left hemiabdomen.) Back Exam: Normal Inspection, Full Range of Motion. No: CVA Tenderness (L), CVA Tenderness (R) Extremities: Normal Inspection, Normal Range of Motion, Non-Tender, No Pedal Edema Neurological: Alert, Oriented, CN II-XII Intact, Normal Cognition Psychiatric: Anxious Skin Exam: Warm, Dry, Intact, Normal Color, No Rash Course - Vital Signs Last Recorded V/S: Last Vital Signs Temp 36.8 C 01/14/19 16:25 Pulse 102 H 01/14/19 16:25 Resp 17 01/14/19 16:25 BP 133/99 H 01/14/19 16:25 Pulse Ox 95 01/14/19 16:25 - Orders/Labs/Meds Orders: Active Orders 24 hr Category Date Time Status Abdomen 1V Flat [CR] Stat Exams 01/14/19 16:46 Taken Dextrose 5%-0.9% NaCl [Dextrose 5%-Normal Saline] 1,000 Med 01/14/19 16:45 Active ml IV ASDIRECTED Medication Orders Dextrose/Sodium Chloride (Dextrose 5%-Normal Saline) 1,000 mls @ 999 mls/hr IV ASDIRECTED YESENIA Last Admin: 01/14/19 17:01 Dose: 999 mls/hr Labs: Laboratory Tests 01/14/19 01/14/19 01/14/19 Range/Units 17:05 17:05 17:05 WBC 9.28 H (4.23-9.07) K/mm3 RBC 5.19 (4.63-6.08) M/mm3 Hgb 14.3 (13.7-17.5) gm/L Hct 41.5 (40.1-51.0) % MCV 80.0 (79.0-92.2) fl MCH 27.6 (25.7-32.2) pg MCHC 34.5 (32.2-35.5) g/dl RDW Std Deviation 39.1 (35.1-43.9) fL Plt Count 315 (163-337) K/mm3 MPV 10.3 (9.4-12.3) fl Neutrophils % (Manual) 78 H (40-60) % Band Neutrophils % 0 (0-10) % Lymphocytes % (Manual) 16 L (20-40) % Atypical Lymphs % 0 % Monocytes % (Manual) 6 (2-10) % Eosinophils % (Manual) 0 L (0.8-7.0) % Basophils % (Manual) 0 L (0.2-1.2) Platelet Estimate Adequate RBC Morph Comment Normal ESR 32 H (0-15) mm/hr Sodium 135 L (136-145) mEq/L Potassium 3.4 L (3.5-5.1) mEq/L Chloride 99 (98-107) mEq/L Carbon Dioxide 26 (21-32) mEq/L Anion Gap 13.4 (5-15) BUN 10 (7-18) mg/dL Creatinine 1.1 (0.7-1.3) mg/dL Est Cr Clr Drug Dosing 78.94 mL/min Estimated GFR (MDRD) > 60 (>60) mL/min BUN/Creatinine Ratio 9.1 L (14-18) Glucose 143 H (74-106) mg/dL Calcium 9.3 (8.5-10.1) mg/dL Total Bilirubin 0.4 (0.2-1.0) mg/dL AST 46 H (15-37) U/L ALT 45 (16-63) U/L Alkaline Phosphatase 99 (46-116) U/L C-Reactive Protein 10.5 H* (<1.0) mg/dL Total Protein 7.5 (6.4-8.2) g/dl Albumin 3.2 L (3.4-5.0) g/dl Globulin 4.3 gm/dL Albumin/Globulin Ratio 0.7 L (1-2) Lipase 124 (73-393) U/L Meds: Medications Generic Name Dose Route Start Last Admin Trade Name Freq PRN Reason Stop Dose Admin Dextrose/Sodium Chloride 1,000 mls @ 999 mls/hr 01/14/19 16:45 01/14/19 17:01 Dextrose 5%-Normal Saline IV 999 mls/hr ASDIRECTED YESENIA Administration Discontinued Medications Generic Name Dose Route Start Last Admin Trade Name Freq PRN Reason Stop Dose Admin Diphenhydramine HCl 25 mg 01/14/19 16:45 01/14/19 17:02 Benadryl IVPUSH 01/14/19 16:46 25 mg ONETIME ONE Administration Hydromorphone HCl 1 mg 01/14/19 16:44 01/14/19 17:03 Dilaudid IVPUSH 01/14/19 16:45 1 mg ONETIME ONE Administration Magnesium Citrate 210 ml 01/14/19 19:30 01/14/19 19:40 Citrate Of Magnesia PO 01/14/19 19:31 210 ml ONETIME ONE Administration Metoclopramide HCl 10 mg 01/14/19 16:45 01/14/19 17:02 Reglan IVPUSH 01/14/19 16:46 10 mg ONETIME ONE Administration Morphine Sulfate 8 mg 01/14/19 17:53 01/14/19 18:12 Morphine IVPUSH 01/14/19 17:54 8 mg ONETIME ONE Administration Morphine Sulfate Confirm 01/14/19 18:08 01/14/19 18:13 Morphine Administered 01/14/19 18:09 Not Given Dose 10 mg .ROUTE .[facility] ONE - Radiology Interpretation Free Text/Narrative:: 43-year-old male of -[place] descent presents once again to the ED complaining of diffuse left ernestina-abdominal pain patient had a CT of the abdomen performed without any contrast on the and was diagnosed with diverticulitis which was present on the CT scan. Both of the eye and the radiologist agreed. Initially the patient's pain was in his left flank rating towards the left groin suggestive of a kidney stone and therefore the CT was done without contrast. I need for contrast as not exercised as the diverticulitis appear to be quite obvious on plain CT. Patient reports that since going home the Percocet tablets cause him to have nausea and vomiting and therefore he only took 2. He's ever been having a good deal of abdominal pain with no relief. He states that the antibiotics have he has been taking Levaquin 500 mg daily and Flagyl 500 mg 3 times a day. He believes they have stay down. He is drinking only green tea and hasn't taken any solids. He's not had a bowel movement for 4 days. Patient has plans to travel by airplane to [place] tomorrow and therefore is not interested being admitted to hospital. He essentially is seeking pain relief. Examination shows tenderness to percussion across the left hemiabdomen. He is more bloated abdominally that he was 4 days ago. He has guarding and rebound tenderness on the left mid abdomen. His affect is slightly histrionic. Vital signs show a resting heart rate of 10 2/m. He is afebrile at present. Plan IV D5 normal saline at open. Given Dilaudid 1 mg IV with Reglan 10 mg IV and Benadryl 25 mg IV as he is on a SSRI. His try prevent a dystonic reaction one view the abdomen will be obtained with repeat labs including a sedimentation rate and CRP. - Re-Assessments/Exams Free Text/Narrative Re-Assessment/Exam: 01/14/19 17:47 KUB reveals very minimal stool in the transverse colon. This patient is not constipated. Reports no bowel movement for the last 4 days but I think is because she's not eating. No left-sided abdominal pain and diagnosed with diverticulitis by CT exam 4 days ago. No cine ileus pattern. There perhaps is a few nonspecific dilated loops of small bowel right lower quadrant. No bowel obstruction pattern identified. 01/14/19 17:48 Labs reveal a normal white count at 9.28. Differential 70% neutrophils and no bands. Hemoglobin is 14.3 with hematocrit of 41.5. Platelet count is 315,000. Chemistry is pending on reexamination he still having significant pain. Will try morphine 8 mg IV. 02/22/19 19:20 Chemistry shows a sodium of 135 and a potassium of 3.4. Chloride 99 bicarbonate 26 and a gap is 13.4 with a BUN of 10 creatinine is 1.1 glucose is 143 with a calcium of 9.3 bilirubin is 0.4 AST is 46 ALT is 45 alk phosphatase 99 C-reactive protein is 10.5. He was previously 17.3--3 days ago .Total protein is 7.5 with an albumin of 3.2. Lipase is 124 01/14/19 19:43 morphine seemed to help relieve his pain substantially. He wants some medicine deceiving get his bowels working. He still feels this treatment is feeling of constipation which is most likely still due to spasm of the colon from diverticulitis. I will give him Citroma 7 ounces by mouth with 6 ounces of juice of choice. Plan will be to discharge him on morphine 15 mg plain tablets 20 one tablet every 4-6 hours necessary for pain relief. He should be relatively cheap as compared to other medications. Since white cell count is dropping in his CRP is improving I see no need to change his antibiotic therapy. Ideally he should stay in the hospital but he has plans to travel to [place] tomorrow due to a in the family. Departure - Departure Time of Disposition: 19:22 Disposition: Home, Self-Care 01 Condition: Fair Clinical Impression: Abdominal pain Qualifiers: Abdominal location: left lower quadrant Qualified Code(s): R10.32 - Left lower quadrant pain - Discharge Information *PRESCRIPTION DRUG MONITORING PROGRAM REVIEWED*: Not Applicable *COPY OF PRESCRIPTION DRUG MONITORING REPORT IN PATIENT SAL: Not Applicable Prescriptions: Morphine 15 mg PO Q4H PRN #20 tab PRN Reason: Abdominal Pain Referrals: Rylee Phillip MD [Primary Care Provider] - Forms: ED Department Discharge - My Orders Last 24 Hours: My Active Orders 01/14/19 16:45 Dextrose 5%-0.9% NaCl [Dextrose 5%-Normal Saline] 1,000 ml IV ASDIRECTED 01/14/19 16:46 Abdomen 1V Flat [CR] Stat - Assessment/Plan Last 24 Hours: My Active Orders 01/14/19 16:45 Dextrose 5%-0.9% NaCl [Dextrose 5%-Normal Saline] 1,000 ml IV ASDIRECTED 01/14/19 16:46 Abdomen 1V Flat [CR] Stat
[2019-01-14] MEDS ORDERED: HYDROmorphone 1 MG/ML Syringe IVPUSH ONE (16:44)
[2019-01-14] MEDS ORDERED: Dextrose 5%-0.9% NaCl 1,000 ML IV SCH (16:45)
[2019-01-14] MEDS ORDERED: diphenhydrAMINE 50 MG/ML SDV IVPUSH ONE (16:45)
[2019-01-14] MEDS ORDERED: Metoclopramide 10 MG/2 ML SDV IVPUSH ONE (16:45)
[2019-01-14] MEDS ORDERED: Morphine 10 MG/ML Syringe IVPUSH ONE (17:53)
[2019-01-14] MEDS ORDERED: Morphine 10 MG/ML SDV ONE (18:08)
[2019-01-14] MEDS ORDERED: Magnesium Citrate Solution 296 ML Bottle PO ONE (19:30)
--- NOTE | 2019-01-15 09:39 | CR ---
Abdomen: Supine view of the abdomen was obtained. Comparison: Prior abdominal x-ray of 01/10/19. Bowel gas pattern is normal. Calcification seen within the pelvis compatible with phleboliths. Bony structures show slight degenerative spurring within the spine. Impression: 1. Nothing acute is seen on supine abdominal x-ray. Diagnostic code #2
== END 2019-01-14 20:12 | disposition home or self-care (01) ==
LOC: JD.ED 16:17
DX: R10.32 Left lower quadrant pain (principal); F32.9 Major depressive disorder, single episode, unspecified; I10 Essential (primary) hypertension; F43.10 Post-traumatic stress disorder, unspecified; Z79.899 Other long term (current) drug therapy; Z88.8 Allergy status to other drugs, medicaments and biological substances
CPT/HCPCS: 36415; 74018; 80053; 83690; 85007; 85027; 85652; 86140; 96361; 96374; 96375; 99283; A9270; J1170; J1200; J2270; J2765; J7042; 99284

== ENCOUNTER 2019-01-30 21:25 | Emergency (ER) | payer OTHER ==
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
[2019-01-30] MEDS ORDERED: Lidocaine 1% 10 ML MDV INJECT ONE (21:49)
--- NOTE | 2019-01-31 09:06 | CT ---
Head CT Technique: Multiple axial sections through the brain were obtained. Intravenous contrast was not utilized. Comparison: No prior intracranial imaging. Findings: Ventricles along with basal cisterns and sulci over the convexities are within normal limits for the patient's age. No abnormal parenchymal densities are seen. No evidence of intracranial hemorrhage. No midline shift or mass effect is seen. Mucosal thickening is noted within the left maxillary sinus with equivocal fluid. Minimal mucosal thickening is noted anteriorly within the ethmoid sinuses. No acute calvarial abnormality is identified. Impression: 1. Left maxillary sinus findings, uncertain if this is due to acute sinusitis or chronic sinusitis. 2. No acute intracranial abnormality is seen. No acute calvarial abnormality is seen. Diagnostic code #3 I agree with preliminary report from [facility], finalized on 01/30/19, 11:54 PM Central Time, code #2
== END 2019-01-30 23:16 | disposition home or self-care (01) ==
LOC: JD.ED 21:25
DX: S01.01XA Laceration without foreign body of scalp, initial encounter (principal); S09.90XA Unspecified injury of head, initial encounter; Z79.899 Other long term (current) drug therapy; Z88.6 Allergy status to analgesic agent; Y04.0XXA Assault by unarmed brawl or fight, initial encounter
CPT/HCPCS: 12002; 70450; 99284; J2001

== ENCOUNTER 2019-01-31 23:31 | Emergency (ER) | payer OTHER ==
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
== END 2019-02-01 01:05 | disposition home or self-care (01) ==
LOC: JD.ED 23:31
DX: S01.01XD Laceration without foreign body of scalp, subsequent encounter (principal); Z91.013 Allergy to seafood; Z79.899 Other long term (current) drug therapy; I10 Essential (primary) hypertension; F17.210 Nicotine dependence, cigarettes, uncomplicated; Y04.0XXD Assault by unarmed brawl or fight, subsequent encounter
CPT/HCPCS: 99282

== ENCOUNTER 2019-04-10 21:17 | Emergency (ER) | payer OTHER ==
[2019-04-10] MEDS ORDERED: Clindamycin HCl 150 MG Cap PO ONE (21:52)
[2019-04-10] MEDS ORDERED: Doxycycline 100 MG Cap PO ONE (21:52)
--- NOTE | 2019-04-10 21:56 | EDM.PDOC ---
ED HPI GENERAL MEDICAL PROBLEM - General Chief Complaint: Skin Complaint Stated Complaint: left leg pain possible infected abcess Time Seen by Provider: 04/10/19 21:33 Source of Information: Reports: Patient History Limitations: Reports: No Limitations - History of Present Illness INITIAL COMMENTS - FREE TEXT/NARRATIVE: 43-year-old male presents for evaluation treatment of sore to the left anterior lower leg. Patient reports in January he bumped his leg and had a small opening. He states since then has slowly gotten worse. He was seen in the [place] and had a physical on March 24. At that time the area was scabbed over and the provider felt that it was healing. He states that he is appreciated some foul-smelling drainage from the area. has also appreciated swelling and pain to the area. He has felt feverish. no nausea or vomiting. No history of Diabetes. no history of MRSA. states he's been applying rubbing alcohol to the area. Left Lower Leg Pain Score (Numeric/FACES): 9 - Related Data Allergies Allergy/AdvReac Type Severity Reaction Status Date / Time shrimp Allergy Respiratory Verified 04/10/19 21:34 Distress Home Meds: Home Meds Escitalopram [Lexapro] 40 mg PO DAILY 01/10/19 [History] Lisinopril/Hydrochlorothiazide [Lisinopril-HCTZ 10-12.5 MG] 1 tab PO DAILY 01/10 [History] amLODIPine Besylate [Amlodipine Besylate] 20 mg PO DAILY 01/10/19 [History] Clindamycin HCl [Cleocin HCl] 300 mg PO TID #21 capsule 04/10/19 [Rx] Doxycycline [Vibramycin] 100 mg PO BID #24 cap 04/10/19 [Rx] buPROPion HCl [Wellbutrin Xl] 300 mg PO DAILY 04/10/19 [History] traMADol [Ultram] 50 mg PO Q6H PRN #10 tab 04/10/19 [Rx] Past Medical History - Past Health History Medical/Surgical History: Denies Medical/Surgical History HEENT History: Reports: Hard of Hearing, Other (See Below) Other HEENT History: tinitus Cardiovascular History: Reports: Hypertension Gastrointestinal History: Reports: Diverticulosis Psychiatric History: Reports: Depression, PTSD - Past Surgical History HEENT Surgical History: Reports: Laser Surgery GI Surgical History: Reports: Hernia Repair/Other Musculoskeletal Surgical History: Reports: Arthroscopic Procedure Social & Family History - Family History Family Medical History: Noncontributory - Tobacco Use Smoking Status *Q: Current Every Day Smoker Years of Tobacco use: 30 Packs/Tins Daily: 0.5 - Caffeine Use Caffeine Use: Reports: Soda - Alcohol Use Days Per Week of Alcohol Use: 5 Number of Drinks Per Day: 4 Total Drinks Per Week: 20 - Recreational Drug Use Recreational Drug Use: Yes Drug Use in Last 12 Months: Yes - Living Situation & Occupation Living situation: Reports: Single Occupation: Employed ED ROS GENERAL - Review of Systems Review Of Systems: See Below Constitutional: Reports: Fever GI/Abdominal: Denies: Nausea, Vomiting Musculoskeletal: Reports: Leg Pain (left lower leg), Other (swelling to the left lower leg) Skin: Reports: Wound (left lower leg) ED EXAM, SKIN/RASH Exam: See Below Exam Limited By: No Limitations General Appearance: Alert, WD/WN, No Apparent Distress Respiratory/Chest: No Respiratory Distress Cardiovascular: Normal Peripheral Pulses, Regular Rate, Rhythm Peripheral Pulses: 3+: Posterior Tibial (L), Dorsalis Pedis (L) Extremities: Normal Inspection, Other (swelling present to the anterior lower leg) Neurological: Alert, Oriented, Normal Cognition Psychiatric: Normal Affect, Normal Mood Skin: Warm, Dry, Normal Color Location, Skin: Lower Extremity, Left (approimately 3cm area in diameter dry area to the left anterior lower leg; associated swelling and increased warmth; no associated drainage) Associated features: Warmth, Tenderness, Crusting. No: Weeping Course - Vital Signs Last Recorded V/S: Last Vital Signs Temp 99 F 04/10/19 21:28 Pulse 93 04/10/19 21:28 Resp 14 04/10/19 21:28 BP 159/94 H 04/10/19 21:28 Pulse Ox 98 04/10/19 21:28 - Orders/Labs/Meds Meds: Medications Discontinued Medications Generic Name Dose Route Start Last Admin Trade Name Freq PRN Reason Stop Dose Admin Clindamycin HCl 300 mg 04/10/19 21:52 04/10/19 22:00 Cleocin PO 04/10/19 21:53 300 mg ONETIME ONE Administration Doxycycline Hyclate 200 mg 04/10/19 21:52 04/10/19 22:00 Vibramycin PO 04/10/19 21:53 200 mg ONETIME ONE Administration - Re-Assessments/Exams Free Text/Narrative Re-Assessment/Exam: 04/10/19 21:[address] El to come and see the patient. Agrees this is cellulitis, no obvious abscess. No I&D indicated at this time. Recommended clindamycin and doxycycline. Will place on antibiotics and discharge home. Discharge instructions as documented. Departure - Departure Time of Disposition: 21:53 Disposition: Home, Self-Care 01 Condition: Fair Clinical Impression: Cellulitis - Discharge Information *PRESCRIPTION DRUG MONITORING PROGRAM REVIEWED*: No *COPY OF PRESCRIPTION DRUG MONITORING REPORT IN PATIENT SAL: No Prescriptions: Clindamycin HCl [Cleocin HCl] 300 mg PO TID #21 capsule Doxycycline [Vibramycin] 100 mg PO BID #24 cap traMADol [Ultram] 50 mg PO Q6H PRN #10 tab PRN Reason: Pain Referrals: Rylee Phillip MD [Primary Care Provider] - Forms: ED Department Discharge Additional Instructions: tramadol q6hrs prn pain. do not drive or operate machinery while taking tramadol. [id number] Tylenol or Motrin as needed for pain relief. tramadol for pain not relieved by tylenol or motrin. You may use ice to the area to help with the swelling and pain. take the doxycycline as prescribed. 1 tab twice a day for 12 days. Take clindamycin 1 cap 3 times a day for 7 days. Take these medications with food. Recommend yogurt or probiotic to help reduce side effects of upset stomach, nausea and diarrhea. Follow-up with your primary care provider if your symptoms persist beyond 2 weeks. Please return to the ER for symptoms change or worsen.
== END 2019-04-10 22:16 | disposition home or self-care (01) ==
LOC: JD.ED 21:17
DX: L03.116 Cellulitis of left lower limb (principal); I10 Essential (primary) hypertension; F17.210 Nicotine dependence, cigarettes, uncomplicated; Z91.013 Allergy to seafood; Z79.899 Other long term (current) drug therapy
CPT/HCPCS: 99282; A9270; 99283

== ENCOUNTER 2019-05-15 23:42 | Emergency (ER) | payer OTHER | END 2019-05-16 00:24 | disposition left against medical advice (07) | LOC: JD.ED 23:42 | DX: Z53.21 Procedure and treatment not carried out due to patient leaving prior to being seen by health care provider (principal) | CPT/HCPCS: 99281 ==

== ENCOUNTER 2020-03-11 14:31 | Emergency (ER) | payer OTHER ==
--- NOTE | 2020-03-11 16:50 | EDM.PDOC ---
ED HPI GENERAL MEDICAL PROBLEM - General Chief Complaint: Respiratory Problem Stated Complaint: COUGH AND DIFFICULTY BREATHING Time Seen by Provider: 03/11/20 15:15 Source of Information: Reports: Patient History Limitations: Reports: No Limitations - History of Present Illness INITIAL COMMENTS - FREE TEXT/NARRATIVE: Taiwo is a 44 year old male who presents to the ER with chest pain, shortness of breath, fever and cough. Reports symptoms started about 5 days ago. Initially had diarrhea, reports some bright red blood in his stool. He reports a fever, highest of 101. he states he then developed a cough, nonproductie and fatigue. He also reports a sore throat. He has now developed chest pain radiating into his right shoulder. He reports shortness of breath. No recent travel. No known covid exposure. Middle Anterior Chest Pain Score (Numeric/FACES): 6 - Related Data Allergies Allergy/AdvReac Type Severity Reaction Status Date / Time shrimp Allergy Respiratory Verified 05/15/19 23:56 Distress Home Meds: Home Meds Escitalopram [Lexapro] 40 mg PO DAILY 01/10/19 [History] Lisinopril/Hydrochlorothiazide [Lisinopril-HCTZ 10-12.5 MG] 1 tab PO DAILY 01/10 [History] amLODIPine Besylate [Amlodipine Besylate] 20 mg PO DAILY 01/10/19 [History] Past Medical History - Past Health History Medical/Surgical History: Denies Medical/Surgical History HEENT History: Reports: Hard of Hearing, Other (See Below) Other HEENT History: tinitus Cardiovascular History: Reports: Hypertension Gastrointestinal History: Reports: Diverticulosis Neurological History: Reports: Brain Injury, Concussion, Headaches, Chronic, Head Trauma, Migraines Psychiatric History: Reports: Depression, PTSD Endocrine/Metabolic History: Reports: None Hematologic History: Reports: None Immunologic History: Reports: None Oncologic (Cancer) History: Reports: None Dermatologic History: Reports: None - Past Surgical History HEENT Surgical History: Reports: Laser Surgery GI Surgical History: Reports: Hernia Repair/Other Musculoskeletal Surgical History: Reports: Arthroscopic Procedure Social & Family History - Family History Family Medical History: Noncontributory - Tobacco Use Smoking Status *Q: Current Every Day Smoker Years of Tobacco use: 20 Packs/Tins Daily: 0.5 - Caffeine Use Caffeine Use: Reports: Coffee - Recreational Drug Use Recreational Drug Use: Yes Recreational Drug Type: Reports: Marijuana/Hashish - Living Situation & Occupation Living situation: Reports: Single Occupation: Employed ED ROS GENERAL - Review of Systems Review Of Systems: See Below Constitutional: Reports: Fever, Chills, Weakness, Fatigue HEENT: Reports: Throat Pain. Denies: Ear Pain Respiratory: Reports: Shortness of Breath, Cough. Denies: Sputum Cardiovascular: Reports: Chest Pain GI/Abdominal: Reports: Diarrhea, Hematochezia. Denies: Abdominal Pain ED EXAM, GENERAL - Physical Exam Exam: See Below Exam Limited By: No Limitations General Appearance: Alert, WD/WN, No Apparent Distress Eye Exam: Bilateral Eye: Normal Inspection Ears: Normal External Exam, Normal Canal, Hearing Grossly Normal, Normal TMs Nose: Normal Inspection Throat/Mouth: Normal Inspection, Normal Lips, Normal Oropharynx, Normal Voice, No Airway Compromise Neck: Normal Inspection Respiratory/Chest: No Respiratory Distress, Lungs Clear, Normal Breath Sounds Cardiovascular: Normal Peripheral Pulses, Regular Rate, Rhythm, No Murmur GI/Abdominal: Soft, Non-Tender Rectal (Males) Exam: Deferred (due to concerns for covid) Extremities: Normal Inspection Neurological: Alert, Oriented, Normal Cognition Psychiatric: Normal Affect, Normal Mood Skin Exam: Warm, Dry, Normal Color EKG INTERPRETATION EKG Date: 03/11/20 Time: 15:51 Rhythm: NSR Rate (Beats/Min): 67 Fenton: LAD-Left Fenton Deviation P-Wave: Present QRS: Normal ST-T: Normal QT: Prolonged EKG Interpretation Comments: Sinus dysrhythmia, mild. left axis deviation. Non specific ST changes, likely repol. Reviewed by myself and Dr. Jenkins. Course - Vital Signs Last Recorded V/S: Last Vital Signs Temp 98 F 03/11/20 14:57 Pulse 78 03/11/20 14:57 Resp 20 03/11/20 14:57 BP 162/111 H 03/11/20 14:57 Pulse Ox - Orders/Labs/Meds Orders: Active Orders 24 hr Category Date Time Status EKG Documentation Completion [RC] ASDIRECTED Care 03/11/20 15:35 Active Chest 1V Frontal [CR] Stat Exams 03/11/20 15:35 Taken CORONAVIRUS COVID-19 PCR PHL Stat Lab 03/11/20 15:27 Received EKG 12 Lead [EK] Stat Ther 03/11/20 15:35 Ordered Labs: Laboratory Tests 03/11/20 03/11/20 03/11/20 Range/Units 16:20 16:20 16:20 WBC 6.14 (4.23-9.07) K/mm3 RBC 5.23 (4.63-6.08) M/mm3 Hgb 15.1 (13.7-17.5) gm/dl Hct 44.3 (40.1-51.0) % MCV 84.7 D (79.0-92.2) fl MCH 28.9 (25.7-32.2) pg MCHC 34.1 (32.2-35.5) g/dl RDW Std Deviation 45.3 H (35.1-43.9) fL Plt Count 245 (163-337) K/mm3 MPV 10.2 (9.4-12.3) fl Neutrophils % (Manual) 41 (40-60) % Band Neutrophils % 0 (0-10) % Lymphocytes % (Manual) 52 H (20-40) % Atypical Lymphs % 0 % Monocytes % (Manual) 5 (2-10) % Eosinophils % (Manual) 2 (0.8-7.0) % Basophils % (Manual) 0 L (0.2-1.2) Platelet Estimate Adequate RBC Morph Comment Normal Sodium 141 (136-145) mEq/L Potassium 3.8 (3.5-5.1) mEq/L Chloride 103 (98-107) mEq/L Carbon Dioxide 27 (21-32) mEq/L Anion Gap 14.8 (5-15) BUN 17 (7-18) mg/dL Creatinine 1.3 (0.7-1.3) mg/dL Est Cr Clr Drug Dosing 66.12 mL/min Estimated GFR (MDRD) > 60 (>60) mL/min BUN/Creatinine Ratio 13.1 L (14-18) Glucose 93 (74-106) mg/dL Calcium 9.4 (8.5-10.1) mg/dL Total Bilirubin 0.2 (0.2-1.0) mg/dL AST 21 (15-37) U/L ALT 33 (16-63) U/L Alkaline Phosphatase 88 (46-116) U/L Troponin I < 0.017 (0.00-0.056) ng/mL C-Reactive Protein 1.6 H* (<1.0) mg/dL Total Protein 7.4 (6.4-8.2) g/dl Albumin 3.5 (3.4-5.0) g/dl Globulin 3.9 gm/dL Albumin/Globulin Ratio 0.9 L (1-2) - Radiology Interpretation Free Text/Narrative:: 1 view chest xray shows no cute intrathoracic process. Formal radiology read pending. - Re-Assessments/Exams Free Text/Narrative Re-Assessment/Exam: 03/11/20 17:45 I reviewed his chest xray, ekg and labs with the patient. Covid test pending. Results will be available in 2-3 days. He will be notified of these results. Reminded to quarantine until symptom free and results are available. Follow-up with PCP if not better in 2 weeks. Return to the ER should symptoms change or worsen. Departure - Departure Time of Disposition: 17:47 Disposition: Home, Self-Care 01 Condition: Fair Clinical Impression: Viral URI with cough, Suspected COVID-19 virus infection - Discharge Information *PRESCRIPTION DRUG MONITORING PROGRAM REVIEWED*: No *COPY OF PRESCRIPTION DRUG MONITORING REPORT IN PATIENT SAL: No Instructions: Viral Respiratory Infection, [id number] Referrals: Rylee hPillip MD [Primary Care Provider] - Forms: ED Department Discharge Additional Instructions: Go home and rest make sure you are drinking plenty of fluids. OTC tylenol or motrin as needed for discomfort. Your covid test will be back in 2-3 days. You will be called with these results. Recommend you quarantine until the results are in. If your symptoms change or worsen please return to the ER. Please call the ER at [phone] before coming and let them know you are being tested for covid. Follow-up with your PCP if your test is negative and your symptoms do not improve within 2 weeks. Sepsis Event Note - Evaluation Sepsis Screening Result: No Definite Risk - Focused Exam Vital Signs: Vital Signs Temp Pulse Resp BP 03/11/20 14:57 98 F 78 20 162/111 H Date Exam was Performed: 03/11/20 Time Exam was Performed: 22:28 - My Orders Last 24 Hours: My Active Orders 03/11/20 15:27 CORONAVIRUS COVID-19 PCR PHL Stat 04/19/20 15:35 EKG Documentation Completion [RC] ASDIRECTED Chest 1V Frontal [CR] Stat EKG 12 Lead [EK] Stat - Assessment/Plan Last 24 Hours: My Active Orders 03/11/20 15:27 CORONAVIRUS COVID-19 PCR PHL Stat 03/11/20 15:35 EKG Documentation Completion [RC] ASDIRECTED Chest 1V Frontal [CR] Stat EKG 12 Lead [EK] Stat
--- NOTE | 2020-03-12 07:43 | CR ---
Chest: Portable view of the chest was obtained. Comparison: Prior chest x-ray of 09/28/17. Heart size and mediastinum are normal. Lungs are clear with no acute parenchymal change. Bony structures are grossly intact. Impression: 1. Nothing acute is seen on portable chest x-ray. Diagnostic code #1 This report was dictated in MDT
== END 2020-03-11 18:09 | disposition home or self-care (01) ==
LOC: JD.ED 14:31
DX: J06.9 Acute upper respiratory infection, unspecified (principal); I10 Essential (primary) hypertension; F32.9 Major depressive disorder, single episode, unspecified; F17.210 Nicotine dependence, cigarettes, uncomplicated; Z79.899 Other long term (current) drug therapy; Z91.013 Allergy to seafood
CPT/HCPCS: 36415; 71045; 71045-26; 80053; 84484; 85007; 85027; 86140; 93005; 93010; 99282; 99285-25; U0002